=== PATIENT | female | born 1995 | race Two or more races ===

== ENCOUNTER 2017-06-17 20:11 | Emergency (ER) | payer OTHER, BC ==
[~2017-06-17] VITALS: Ht 162.6 cm; Wt 65.3 kg
[~2017-06-17 20:11] MED LIST: FERROCITE324 MG PO; IBUPROFEN800 MG PO; PRENATAL TABLE1 EAC3 PO; PRENATAL VITAM1 EAC2 PO
[2017-06-17] MEDS ORDERED: NAPROSYN500 MG PO (23:39)
[2017-06-18 00:04] VITALS: BP 123/80
== END 2017-06-18 00:04 | disposition home or self-care (01) ==
LOC: EME 20:11
DX: S00.83XA Contusion of other part of head, initial encounter (principal); V49.50XA Passenger injured in collision with unspecified motor vehicles in traffic accident, initial encounter; Y92.410 Unspecified street and highway as the place of occurrence of the external cause; F17.200 Nicotine dependence, unspecified, uncomplicated
CPT/HCPCS: 70486; 99281; 99283